=== PATIENT | female | born 1980 | race American Indian/Alaskan Native ===

== ENCOUNTER 2021-06-28 13:08 | Emergency (ER) | payer MEDICAID, OTHER ==
[2021-06-28 13:25] VITALS: BP 162/91
--- NOTE | 2021-06-28 14:25 | Emergency Department Report ---
ED Neuro Deficit HPI - General Chief Complaint: Neuro Symptoms/Deficit Stated Complaint: RGHT SIDE FACE IS STUCK Time Seen by Provider: 06/28/21 14:21 Source: patient Mode of arrival: Ambulatory Limitations: No Limitations - History of Present Illness Initial Comments: 41-year-old morbid obese -Portuguese female presents to the emergency room reporting that her right face is stuck. Patient states on Saturday she started having tearing of her eyes by Saturday she was not able to close her right eye in she was not able to make a complete smile and started having right ear pain. 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 She has a history of rheumatoid arthritis. Denies any diabetes. She denies any facial swelling no headache no nausea no vomiting no discharge from the ear. She does admit to right ear pain. No fevers no chills. Onset/Timin -: days(s) Location: right face Presenting Symptoms: Present: Facial Droop/Numbness History of same: No Place: home Severity: moderate Improves With: none Worsens With: none On Anticoagulants: No Context: sudden onset Associated Symptoms: denies other symptoms Treatments Prior to Arrival: other medication (Ibuprofen 800 mg) - Related Data Home Medications: Previous Rx's Medication Instructions Recorded Last Taken Type Apixaban [Eliquis] 2.5 mg PO BID #60 tablet 12/19/19 Unknown Rx Pantoprazole [Protonix TAB] 40 mg PO QDAY #30 tablet 12/19/19 Unknown Rx predniSONE 10 mg PO .TAPER 65 Days #1 tab 12/19/19 Unknown Rx Valacyclovir HCl [Valacyclovir] 1,000 mg PO TID 10 Days #30 tab 06/28/21 Unknown Rx predniSONE [Deltasone] 60 mg PO QDAY 7 Days #21 tab 06/28/21 Unknown Rx Allergies/Adverse Reactions: Allergies Allergy/AdvReac Type Severity Reaction Status Date / Time shellfish derived Allergy Anaphylaxis Verified 06/28/21 13:25 ED Review of Systems ROS: Stated complaint: RGHT SIDE FACE IS STUCK Other details as noted in HPI Comment: All other systems reviewed and negative ED Past Medical Hx - Past Medical History Hx Congestive Heart Failure: No Hx Diabetes: No Hx Deep Vein Thrombosis: No Hx Arthritis: Yes (osteo and rheumatoid) Hx Asthma: Yes Hx COPD: No Hx HIV: No - Surgical History Hx Pacemaker: No Hx Internal Defibrillator: No Additional Surgical History: ACL repair, tonsillectomy - Social History Smoking Status: Never Smoker - Medications Home Medications: Home Medications Medication Instructions Recorded Confirmed Last Taken Type Apixaban [Eliquis] 2.5 mg PO BID #60 tablet 12/19/19 Unknown Rx Pantoprazole [Protonix TAB] 40 mg PO QDAY #30 tablet 12/19/19 Unknown Rx predniSONE 10 mg PO .TAPER 65 Days #1 tab 12/19/19 Unknown Rx Valacyclovir HCl [Valacyclovir] 1,000 mg PO TID 10 Days #30 tab 06/28/21 Unknown Rx predniSONE [Deltasone] 60 mg PO QDAY 7 Days #21 tab 06/28/21 Unknown Rx ED Neuro Physical Exam - General Limitations: No Limitations General appearance: alert, in no apparent distress Suspected Stroke: No - Head Head exam: Present: atraumatic, normocephalic - Eye Eye exam: Present: other (Not able to close right eye, not able to lift right eyebrow, forehead paralysis on right side not able to smile completely on right side) - ENT ENT exam: Present: mucous membranes moist - Neck Neck exam: Present: full ROM - Respiratory Respiratory exam: Present: other (Currently on oxygen portable). Absent: respiratory distress, accessory muscle use - Extremities Exam Extremities exam: Present: normal inspection, full ROM - Back Exam Back exam: Present: normal inspection, full ROM - NIHSS 1a. Level of Consciousness: alert/keenly responsive 1b. LOC Questions: answers both correctly 1c. LOC Commands: performs tasks correctly 3. Visual: no visual loss 4. Facial Palsy: unilateral complete paralysis 5b. Motor Arm Right: no drift 5a. Motor Arm Left: no drift 6a. Motor Leg Left: no drift 6b. Motor Leg Right: no drift 7. Limb Ataxia: absent 8. Sensory: normal 9. Best Language: no aphasia 10. Dysarthria: normal 11. Extinction/Inattention: no abnormality - Psychiatric Psychiatric exam: Present: normal affect, normal mood, other (Corporative sense of humor) - Skin Skin exam: Present: warm, dry, intact, normal color. Absent: rash ED Course Vital Signs 06/28/21 13:22 Temperature 98.6 F Pulse Rate 61 Respiratory 18 Rate Blood Pressure 162/91 [Left] O2 Sat by Pulse 100 Oximetry - Lab Data Lab Results 06/28/21 Range/Units 13:20 POC Glucose 71 (70-105) mg/dL - Medical Decision Making 41-year-old morbid obese -Portuguese female presents to the emergency room reporting that her right face is stuck. Patient states on Saturday she started having tearing of her eyes by Saturday she was not able to close her right eye in she was not able to make a complete smile and started having right ear pain. 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 She has a history of rheumatoid arthritis. Denies any diabetes. She denies any facial swelling no headache no nausea no vomiting no discharge from the ear. She does admit to right ear pain. No fevers no chills. Critical care attestation.: If time is entered above; I have spent that time in minutes in the direct care of this critically ill patient, excluding procedure time. ED Disposition Clinical Impression: Billingsley's palsy Disposition: HOME / SELF CARE / HOMELESS Is pt being admited?: No Does the pt Need Aspirin: No Condition: Stable Instructions: Billingsley Palsy, Adult Additional Instructions: Please complete medication as prescribed. Is important you follow-up with your primary care provider and her neurologist. I have listed their information below for your convenience. Prescriptions: predniSONE [Deltasone] 60 mg PO QDAY 7 Days #21 tab Valacyclovir HCl [Valacyclovir] 1,000 mg PO TID 10 Days #30 tab Referrals: CHAITANYA SPANN II, MD [Staff Physician] - 3-5 Days Time of Disposition: 14:41
== END 2021-06-28 15:31 | disposition home or self-care (01) ==
LOC: ED 13:08
DX: G51.0 Bell's palsy (principal)
CPT/HCPCS: 82962; 99282